=== PATIENT | male | born 1955 | race Caucasian/White ===

== ENCOUNTER 2020-04-17 14:11 | Inpatient (IN) ==
[2020-04-17 15:02] LABS: Basophils % 0.6 %; Eosinophils # 0.1 K/mcL (0.0-0.6); Hematocrit 36.6 % (37.5-50.1); Hemoglobin 11.4 g/dL (12.9-16.9); Immature Granulocytes % 0.2 % (0-4); Lymphocytes # 2.1 K/mcL (0.6-4.6); Lymphocytes % 38.5 %; Mean Corpuscular HGB Conc 31.1 g/dL (31.6-35.5); Mean Corpuscular Hemoglobin 31.2 pg (28.0-33.3); Mean Corpuscular Volume 100.3 fL (83.0-100.0); Mean Platelet Volume 10.2 fL (9.4-12.4); Monocytes # 0.4 K/mcL (0.0-1.3); Monocytes % 6.7 %; Neutrophils # 2.8 K/mcL (1.6-8.9); Platelet Count 102 K/mcL (140-400); Red Blood Count 3.65 M/mcL (4.19-5.50); Red Cell Distribution Width 13.7 % (11.5-14.5); White Blood Count 5.4 K/mcL (4.3-11.1)
[2020-04-17 15:28] LABS: Troponin I < 0.03 ng/mL (< 0.04)
[2020-04-17 15:47] LABS: BUN/Creatinine Ratio 11 (6-26); Blood Urea Nitrogen 42 mg/dL (8-23); Calcium 8.7 mg/dL (8.6-10.3); Carbon Dioxide 29 mEq/L (23-29); Chloride 106 mEq/L (98-107); Glucose 108 mg/dL (70-105); Osmolality,Calculated 299 (280-300); Potassium 5.6 mEq/L (3.5-5.1); Sodium 139 mEq/L (136-145); eGFR For African Americans 20 (> 60); eGFR For Non-African Americans 17 (> 60)
[2020-04-17] MEDS ORDERED: *HR* FentaNYL (PF) 100 MCG/2 ML VIAL IVP ONE (16:38)
[2020-04-17] MEDS ORDERED: Ondansetron 4 MG/2 ML VIAL IVP ONE (16:39)
[2020-04-17] MEDS ORDERED: Naloxone 0.4 MG/ML INJ IVP PRN ×2 (17:41→18:46)
[2020-04-17] MEDS ORDERED: *HR* Dextrose 50 % in Water (Vial) 50 ML VIAL IVP PRN (18:13)
[2020-04-17] MEDS ORDERED: Dextrose Gel 15 GM/37.5 ML TUBE PO PRN ×2 (18:13)
[2020-04-17] MEDS ORDERED: D5% in Water 1,000 ML IVC PRN (18:13)
[2020-04-17] MEDS ORDERED: Perflutren Lipid Microsphere 1.3 ML in 0.9 % Sodium Chloride 8.7 ML IVP PRN (18:18)
[2020-04-17] MEDS ORDERED: *HR* OxyCODONE Immed Rel 5 MG TABLET PO PRN (18:46)
[2020-04-17] MEDS ORDERED: Ondansetron 4 MG/2 ML VIAL IVP PRN (18:46)
[2020-04-17] MEDS ORDERED: *HR* OxyCODONE Immed Rel 15 MG TABLET PO PRN (18:52)
[2020-04-17] MEDS ORDERED: Calcium Gluconate 1gm/50mL 1 GM/50 ML BAG IVPB ONE (19:00)
[2020-04-17] MEDS ORDERED: Insulin Human Regular 5 UNIT in 0.9 % Sodium Chloride 10 ML IV ONE (19:00)
[2020-04-17] MEDS ORDERED: *HR* Dextrose 50 % in Water (Vial) 50 ML VIAL IVP ONE (19:02)
[2020-04-17] MEDS: Insulin LISPRO 300 UNITS/3 ML VIAL SQ SCH (20:26)
[2020-04-17] MEDS: Pregabalin 75 MG CAPSULE PO SCH (22:42)
[2020-04-17 23:43] LABS: Calcium 8.6 mg/dL (8.6-10.3); Potassium 5.2 mEq/L (3.5-5.1)
[2020-04-18 05:14] LABS: ABG Base Excess 2 mEq/L (-2 to 3); ABG HCO3 33 mEq/L (21-27); ABG Oxygen Saturation 92 % (95-98); ABG PCO2 92 mmHg (35-45); ABG PH 7.16 pH Units (7.32-7.45); ABG PO2 85 mmHg (85-104); ABG TCO2 36 mEq/L (20-26); Blood Gas Modality AVAPS; Blood Gas VT 500 cc
[2020-04-18 05:35] LABS: Basophils # 0.1 K/mcL (0.0-0.2); Basophils % 0.7 %; Eosinophils # 0.1 K/mcL (0.0-0.6); Eosinophils % 1.8 %; Hematocrit 39.4 % (37.5-50.1); Hemoglobin 11.6 g/dL (12.9-16.9); Immature Granulocytes % 0.4 % (0-4); Lymphocytes # 3.3 K/mcL (0.6-4.6); Lymphocytes % 44.5 %; Mean Corpuscular HGB Conc 29.4 g/dL (31.6-35.5); Mean Corpuscular Hemoglobin 30.2 pg (28.0-33.3); Mean Corpuscular Volume 102.6 fL (83.0-100.0); Mean Platelet Volume 10.8 fL (9.4-12.4); Monocytes # 0.7 K/mcL (0.0-1.3); Neutrophils # 3.2 K/mcL (1.6-8.9); Platelet Count 130 K/mcL (140-400); Red Blood Count 3.84 M/mcL (4.19-5.50); Segmented Neutrophils % 43.6 %; White Blood Count 7.4 K/mcL (4.3-11.1)
[2020-04-18 06:06] LABS: ABG Base Excess -1 mEq/L (-2 to 3); ABG HCO3 28 mEq/L (21-27); ABG Oxygen Saturation 97 % (95-98); ABG PCO2 68 mmHg (35-45); ABG PH 7.23 pH Units (7.32-7.45); ABG PO2 109 mmHg (85-104); ABG TCO2 30 mEq/L (20-26); Blood Gas Modality avaps; Blood Gas VT 500 cc
[2020-04-18 06:06] LABS: Albumin 3.4 g/dL (3.5-5.7); Albumin/Globulin Ratio 0.8 (1.1-2.2); Bilirubin,Total 0.4 mg/dL (0.3-1.0); Calcium 8.8 mg/dL (8.6-10.3); Globulin 4.5 g/dL (2.4-3.5); Magnesium 2.4 mg/dL (1.6-2.6); Phosphorous 5.8 mg/dL (2.7-4.5); Potassium 6.2 mEq/L (3.5-5.1); Total Protein 7.9 g/dL (6.4-8.9)
[2020-04-18] MEDS ORDERED: Calcium Gluconate 1gm/50mL 1 GM/50 ML BAG IVPB ONE ×2 (07:00→09:32)
[2020-04-18] MEDS ORDERED: Insulin Human Regular 10 UNIT in 0.9 % Sodium Chloride 10 ML IV ONE (07:01)
[2020-04-18] MEDS ORDERED: LISINOPRIL 10 MG PO SCH (09:00)
[2020-04-18 09:17] LABS: Estimated Average Glucose 143 mg/dl
[2020-04-18 09:38] LABS: ABG Base Excess 3 mEq/L (-2 to 3); ABG HCO3 32 mEq/L (21-27); ABG Oxygen Saturation 97 % (95-98); ABG PCO2 74 mmHg (35-45); ABG PH 7.25 pH Units (7.32-7.45); ABG PO2 107 mmHg (85-104); ABG TCO2 34 mEq/L (20-26)
[2020-04-18] MEDS: Insulin LISPRO 300 UNITS/3 ML VIAL SQ SCH ×3 (09:39→17:57)
[2020-04-18] MEDS ORDERED: Albuterol 2.5 MG/3 ML NEBULIZER IH ONE (09:48)
[2020-04-18] MEDS ORDERED: Albuterol 2.5 MG/3 ML NEBULIZER ONE (09:51)
[2020-04-18] MEDS: Aspirin 81 MG TAB.CHEW PO SCH (12:49)
[2020-04-18] MEDS: Pregabalin 75 MG CAPSULE PO SCH (12:50)
[2020-04-18] MEDS ORDERED: 0.9 % Sodium Chloride 250 ML IVC PRN (13:22)
[2020-04-18] MEDS ORDERED: 0.9 % Sodium Chloride 1,000 ML PRIME SCH ×2 (13:30→19:30)
[2020-04-18] MEDS ORDERED: 0.9 % Sodium Chloride 500 ML ONE (14:03)
[2020-04-18] MEDS ORDERED: *HR* Heparin 5,000 UNIT/ML VIAL ONE (14:08)
[2020-04-18] MEDS ORDERED: *HR* Heparin 10,000 UNIT/10 ML VIAL IV PRN (16:02)
[2020-04-18 16:03] LABS: Hepatitis B Surface Antibody < 3.10 mIU/mL
[2020-04-18 16:49] LABS: VBG HCO3 33 mEq/L (21-27); VBG PCO2 109 mmHg (41-51); VBG PH 7.08 pH Units (7.32-7.42); VBG PO2 106 mmHg (25-50)
[2020-04-18 18:19] LABS: ABG Base Excess 1 mEq/L (-2 to 3); ABG HCO3 34 mEq/L (21-27); ABG Oxygen Saturation 81 % (95-98); ABG PCO2 110 mmHg (35-45); ABG PO2 65 mmHg (85-104); ABG TCO2 37 mEq/L (20-26)
[2020-04-18] MEDS ORDERED: Calcium Gluconate 1gm/50mL 1 GM/50 ML BAG IVPB PRN ×2 (19:16)
[2020-04-18] MEDS ORDERED: *HR* Heparin 5,000 UNIT/ML VIAL CRRT PRN (19:16)
[2020-04-18 19:24] LABS: Adenovirus Not Detected (Not Detect); Bordetella Pertussis Not Detected (Not Detect); Chlamydophila pneumoniae Not Detected (Not Detect); Coronavirus 229E Not Detected (Not Detect); Coronavirus HKU1 Not Detected (Not Detect); Coronavirus NL63 Not Detected (Not Detect); Coronavirus OC43 Not Detected (Not Detect); Human Metapneumovirus Not Detected (Not Detect); Human Rhinovirus/Enterovirus Not Detected (Not Detect); Influenza A Subtype 2009 H1 Not Detected (Not Detect); Influenza B Not Detected (Not Detect); Mycoplasma pneumoniae Not Detected (Not Detect); Parainfluenza Virus 1 Not Detected (Not Detect); Parainfluenza Virus 2 Not Detected (Not Detect); Parainfluenza Virus 3 Not Detected (Not Detect); Parainfluenza Virus 4 Not Detected (Not Detect); Respiratory Syncytial Virus Not Detected (Not Detect)
[2020-04-18 19:30] LABS: Hepatitis B Surface Antigen Reactive (Nonreactive)
[2020-04-18] MEDS ORDERED: Calcium Chloride 4,000 MG in 0.9 % Sodium Chloride 1,000 ML CRRT SCH (19:30)
[2020-04-18] MEDS ORDERED: PrismaSATE BGK 4/2.5 5,000 ML CRRT SCH ×2 (19:30)
[2020-04-18 19:49] LABS: ABG Base Excess 1 mEq/L (-2 to 3); ABG HCO3 31 mEq/L (21-27); ABG Oxygen Saturation 95 % (95-98); ABG PCO2 82 mmHg (35-45); ABG PH 7.19 pH Units (7.32-7.45); ABG PO2 95 mmHg (85-104); ABG TCO2 34 mEq/L (20-26); Blood Gas VT 600 cc
[2020-04-18] MEDS ORDERED: Furosemide 40 MG/4 ML VIAL IVP ONE (20:51)
[2020-04-18 21:43] LABS: Amorphous Sediment,Urine Few per hpf (None-Few); Bacteria,Urine Few per hpf (None-Few); Bilirubin,Urine Negative (Negative); Blood,Urine Small (Negative); Clarity,Urine Turbid (Clear); Color,Urine Yellow (Yellow); Glucose,Urine (UA) 50 mg/dL (Normal); Ketones,Urine Negative (Negative); Leukocyte Esterase,Urine Negative (Negative); Mucus,Urine Few per lpf (None-Few); Nitrite,Urine Negative (Negative); PH,Urine 5.5 pH Units (5.0-8.0); Protein,Urine >=300 mg/dL (Neg-Trace); RBC,Urine 0-3 per hpf (0-3); Specific Gravity,Urine 1.018 (1.010-1.025); Squamous Epithelial Cell,Urine Few per hpf (None-Few); Urobilinogen,Urine Normal (Normal); WBC,Urine 0-3 per hpf (0-3)
[2020-04-18 22:07] LABS: Protein/Creatinine Ratio,Urine 3.7 mg/mg (0.00-0.20)
[2020-04-19 03:56] LABS: Basophils % 0.5 %
[2020-04-19 03:58] LABS: Eosinophils # 0.1 K/mcL (0.0-0.6); Eosinophils % 0.8 %; Hematocrit 33.2 % (37.5-50.1); Hemoglobin 9.7 g/dL (12.9-16.9); Immature Granulocytes % 0.5 % (0-4); Immature Platelets 3.4 % (1.1-6.1); Lymphocytes # 1.8 K/mcL (0.6-4.6); Mean Corpuscular HGB Conc 29.2 g/dL (31.6-35.5); Mean Corpuscular Hemoglobin 30.1 pg (28.0-33.3); Mean Corpuscular Volume 103.1 fL (83.0-100.0); Mean Platelet Volume 10.3 fL (9.4-12.4); Monocytes # 0.4 K/mcL (0.0-1.3); Monocytes % 6.7 %; Neutrophils # 3.6 K/mcL (1.6-8.9); Platelet Count 103 K/mcL (140-400); Red Blood Count 3.22 M/mcL (4.19-5.50); Red Cell Distribution Width 13.8 % (11.5-14.5); Segmented Neutrophils % 60.5 %; White Blood Count 5.9 K/mcL (4.3-11.1)
[2020-04-19 04:16] LABS: Calcium 8.2 mg/dL (8.6-10.3); Magnesium 2.1 mg/dL (1.6-2.6); Phosphorous 5.4 mg/dL (2.7-4.5); Potassium 5.5 mEq/L (3.5-5.1)
[2020-04-19 04:18] LABS: ABG Base Excess 3 mEq/L (-2 to 3); ABG HCO3 31 mEq/L (21-27); ABG Oxygen Saturation 91 % (95-98); ABG PCO2 70 mmHg (35-45); ABG PH 7.26 pH Units (7.32-7.45); ABG PO2 74 mmHg (85-104); ABG TCO2 34 mEq/L (20-26); Blood Gas VT 600 cc
[2020-04-19] MEDS ORDERED: Albumin 25% 25gram/100mL 25 GM/100 ML IV.SOLN IVPB PRN (07:30)
[2020-04-19] MEDS ORDERED: 0.9 % Sodium Chloride 250 ML IVC PRN (07:30)
[2020-04-19] MEDS ORDERED: *HR* Heparin 10,000 UNIT/10 ML VIAL IV PRN (08:13)
[2020-04-19] MEDS ORDERED: Norepinephrine 4 MG/254 ML IV.SOLN IVC SCH (08:15)
[2020-04-19] MEDS: Aspirin 81 MG TAB.CHEW PO SCH (08:34)
[2020-04-19] MEDS: Insulin LISPRO 300 UNITS/3 ML VIAL SQ SCH ×3 (08:35→18:21)
[2020-04-19 15:11] LABS: ABG Base Excess 4 mEq/L (-2 to 3); ABG HCO3 34 mEq/L (21-27); ABG Oxygen Saturation 92 % (95-98); ABG PCO2 81 mmHg (35-45); ABG PH 7.23 pH Units (7.32-7.45); ABG PO2 79 mmHg (85-104); ABG TCO2 36 mEq/L (20-26); Blood Gas Modality avaps; Blood Gas VT 600 cc
[2020-04-19] MEDS ORDERED: *HR* OxyCODONE Immed Rel 5 MG TABLET PO PRN (17:26)
[2020-04-20 04:52] LABS: ABG Base Excess 4 mEq/L (-2 to 3); ABG HCO3 32 mEq/L (21-27); ABG Oxygen Saturation 99 % (95-98); ABG PCO2 60 mmHg (35-45); ABG PH 7.33 pH Units (7.32-7.45); ABG PO2 130 mmHg (85-104); ABG TCO2 34 mEq/L (20-26); Blood Gas VT 600 cc
[2020-04-20 05:09] LABS: Basophils % 0.4 %; Eosinophils # 0.1 K/mcL (0.0-0.6); Hematocrit 33.9 % (37.5-50.1); Hemoglobin 10.5 g/dL (12.9-16.9); Immature Granulocytes % 0.1 % (0-4); Lymphocytes % 29.3 %; Mean Corpuscular Hemoglobin 30.3 pg (28.0-33.3); Monocytes # 0.5 K/mcL (0.0-1.3); Monocytes % 6.6 %; Neutrophils # 4.3 K/mcL (1.6-8.9); Platelet Count 103 K/mcL (140-400); Red Blood Count 3.46 M/mcL (4.19-5.50); Red Cell Distribution Width 13.6 % (11.5-14.5); Segmented Neutrophils % 61.6 %
[2020-04-20 05:10] LABS: VBG Ionized Calcium 1.09 mmol/L (1.15-1.35)
[2020-04-20 05:28] LABS: Calcium 8.5 mg/dL (8.6-10.3); Phosphorous 3.6 mg/dL (2.7-4.5); Potassium 4.7 mEq/L (3.5-5.1)
[2020-04-20] MEDS: Insulin LISPRO 300 UNITS/3 ML VIAL SQ SCH ×3 (09:52→17:13)
[2020-04-20] MEDS: Aspirin 81 MG TAB.CHEW PO SCH (09:56)
[2020-04-20 16:30] LABS: Total Volume 24 Hour,Urine 0.11 Liters (0.80-1.80)
[2020-04-20] MEDS ORDERED: Naloxone 0.4 MG/ML INJ IVP PRN (17:18)
[2020-04-20] MEDS ORDERED: Ondansetron 4 MG/2 ML VIAL IVP PRN (17:18)
[2020-04-20] MEDS ORDERED: Dextrose Gel 15 GM/37.5 ML TUBE PO PRN ×2 (17:18)
[2020-04-20] MEDS ORDERED: D5% in Water 1,000 ML IVC PRN (17:18)
[2020-04-20] MEDS ORDERED: *HR* Dextrose 50 % in Water (Vial) 50 ML VIAL IVP PRN (17:18)
[2020-04-21] MEDS: *HR* Heparin 5,000 UNIT/ML VIAL SQ SCH ×4 (00:28→20:54)
[2020-04-21 03:54] LABS: Basophils % 0.5 %; Eosinophils # 0.2 K/mcL (0.0-0.6); Eosinophils % 3.4 %; Hemoglobin 10.3 g/dL (12.9-16.9); Immature Granulocytes % 0.2 % (0-4); Lymphocytes # 2.4 K/mcL (0.6-4.6); Lymphocytes % 37.3 %; Mean Corpuscular HGB Conc 31.2 g/dL (31.6-35.5); Mean Corpuscular Hemoglobin 30.2 pg (28.0-33.3); Mean Corpuscular Volume 96.8 fL (83.0-100.0); Mean Platelet Volume 10.5 fL (9.4-12.4); Monocytes # 0.5 K/mcL (0.0-1.3); Monocytes % 7.3 %; Neutrophils # 3.3 K/mcL (1.6-8.9); Platelet Count 103 K/mcL (140-400); Red Blood Count 3.41 M/mcL (4.19-5.50); Red Cell Distribution Width 13.4 % (11.5-14.5); Segmented Neutrophils % 51.3 %; White Blood Count 6.5 K/mcL (4.3-11.1)
[2020-04-21 04:14] LABS: Albumin 2.9 g/dL (3.5-5.7); Calcium 8.1 mg/dL (8.6-10.3); Phosphorous 3.6 mg/dL (2.7-4.5); Potassium 4.7 mEq/L (3.5-5.1)
[2020-04-21] MEDS ORDERED: 0.9 % Sodium Chloride 250 ML IVC PRN (07:06)
[2020-04-21] MEDS ORDERED: 0.9 % Sodium Chloride 1,000 ML PRIME SCH (07:15)
[2020-04-21] MEDS: Aspirin 81 MG TAB.CHEW PO SCH (08:03)
[2020-04-21] MEDS: Insulin LISPRO 300 UNITS/3 ML VIAL SQ SCH ×3 (08:05→16:49)
[2020-04-21] MEDS ORDERED: *HR* Heparin 10,000 UNIT/10 ML VIAL IV PRN (13:39)
[2020-04-21] MEDS: amLODIPine 5 MG TABLET PO SCH (14:55)
[2020-04-21] MEDS ORDERED: *HR* LORazepam 2 MG/ML VIAL IVP ONE (15:52)
[2020-04-21] MEDS: hydrOXYzine pamoate 25 MG CAPSULE PO PRN (20:53)
[2020-04-21] MEDS: *HR* OxyCODONE Immed Rel 5 MG TABLET PO PRN (21:39)
[2020-04-22 01:32] LABS: Basophils % 0.5 %; Eosinophils # 0.2 K/mcL (0.0-0.6); Eosinophils % 3.1 %; Hematocrit 33.8 % (37.5-50.1); Hemoglobin 10.7 g/dL (12.9-16.9); Immature Granulocytes % 0.3 % (0-4); Lymphocytes # 2.6 K/mcL (0.6-4.6); Mean Corpuscular HGB Conc 31.7 g/dL (31.6-35.5); Mean Corpuscular Hemoglobin 30.4 pg (28.0-33.3); Mean Platelet Volume 10.1 fL (9.4-12.4); Monocytes # 0.4 K/mcL (0.0-1.3); Monocytes % 6.5 %; Neutrophils # 3.2 K/mcL (1.6-8.9); Platelet Count 117 K/mcL (140-400); Red Blood Count 3.52 M/mcL (4.19-5.50); Red Cell Distribution Width 13.4 % (11.5-14.5); Segmented Neutrophils % 49.6 %; White Blood Count 6.4 K/mcL (4.3-11.1)
[2020-04-22 01:52] LABS: Calcium 8.2 mg/dL (8.6-10.3); Potassium 4.2 mEq/L (3.5-5.1)
[2020-04-22 02:00] LABS: INR 1.1; Prothrombin Time 12.8 Seconds (9.4-12.1)
[2020-04-22] MEDS: *HR* OxyCODONE Immed Rel 5 MG TABLET PO PRN ×4 (05:22→21:38)
[2020-04-22] MEDS: hydrOXYzine pamoate 25 MG CAPSULE PO PRN ×3 (05:23→23:26)
[2020-04-22] MEDS: *HR* Heparin 5,000 UNIT/ML VIAL SQ SCH ×3 (05:23→21:38)
[2020-04-22] MEDS: amLODIPine 5 MG TABLET PO SCH (08:09)
[2020-04-22] MEDS: Insulin LISPRO 300 UNITS/3 ML VIAL SQ SCH ×3 (08:10→17:20)
[2020-04-22] MEDS: Aspirin 81 MG TAB.CHEW PO SCH (08:11)
[2020-04-22] MEDS ORDERED: Heparin 1,000 UNITS/500 mL 500 ML ONE (08:36)
[2020-04-22] MEDS ORDERED: *HR* LORazepam 2 MG/ML VIAL IVP ONE (08:47)
[2020-04-22] MEDS ORDERED: 0.9 % Sodium Chloride 500 ML ONE (09:11)
[2020-04-22] MEDS ORDERED: *HR* FentaNYL (PF) 100 MCG/2 ML VIAL ONE (10:11)
[2020-04-22] MEDS ORDERED: *HR* Midazolam HCl 2 MG/2 ML VIAL ONE (10:11)
[2020-04-22] MEDS ORDERED: *HR* Heparin 5,000 UNIT/ML VIAL ONE (10:14)
[2020-04-22] MEDS ORDERED: Clindamycin 600 MG/50 ML 600 MG/50 ML IV.SOLN IVPB ONE (10:14)
[2020-04-22] MEDS ORDERED: *HR* Midazolam HCl 2 MG/2 ML VIAL IVP ONE (10:14)
[2020-04-22] MEDS ORDERED: *HR* FentaNYL (PF) 100 MCG/2 ML VIAL IVP ONE (10:14)
[2020-04-23] MEDS: *HR* OxyCODONE Immed Rel 5 MG TABLET PO PRN (04:01)
[2020-04-23 05:25] LABS: Basophils % 0.7 %; Eosinophils # 0.1 K/mcL (0.0-0.6); Eosinophils % 2.5 %; Hematocrit 34.2 % (37.5-50.1); Hemoglobin 10.8 g/dL (12.9-16.9); Immature Granulocytes % 0.4 % (0-4); Lymphocytes # 2.3 K/mcL (0.6-4.6); Lymphocytes % 40.7 %; Mean Corpuscular HGB Conc 31.6 g/dL (31.6-35.5); Mean Corpuscular Hemoglobin 30.3 pg (28.0-33.3); Mean Corpuscular Volume 95.8 fL (83.0-100.0); Mean Platelet Volume 10.3 fL (9.4-12.4); Monocytes # 0.5 K/mcL (0.0-1.3); Monocytes % 8.9 %; Neutrophils # 2.6 K/mcL (1.6-8.9); Platelet Count 101 K/mcL (140-400); Red Blood Count 3.57 M/mcL (4.19-5.50); Red Cell Distribution Width 13.3 % (11.5-14.5); Segmented Neutrophils % 46.8 %; White Blood Count 5.6 K/mcL (4.3-11.1)
[2020-04-23 05:49] LABS: Calcium 8.3 mg/dL (8.6-10.3); Potassium 4.5 mEq/L (3.5-5.1)
[2020-04-23] MEDS: *HR* Heparin 5,000 UNIT/ML VIAL SQ SCH ×3 (06:00→21:24)
[2020-04-23] MEDS ORDERED: 0.9 % Sodium Chloride 250 ML IVC PRN (07:02)
[2020-04-23] MEDS: Aspirin 81 MG TAB.CHEW PO SCH (08:14)
[2020-04-23] MEDS: amLODIPine 5 MG TABLET PO SCH (08:16)
[2020-04-23] MEDS: Insulin LISPRO 300 UNITS/3 ML VIAL SQ SCH ×3 (08:16→17:11)
[2020-04-23] MEDS ORDERED: *HR* Heparin 10,000 UNIT/10 ML VIAL IV PRN (12:04)
[2020-04-23] MEDS: *HR* OxyCODONE Immed Rel 15 MG TABLET PO PRN ×2 (14:55→21:40)
[2020-04-23] MEDS: hydrOXYzine pamoate 25 MG CAPSULE PO PRN (23:10)
[2020-04-24] MEDS: *HR* Heparin 5,000 UNIT/ML VIAL SQ SCH ×3 (05:47→20:57)
[2020-04-24] MEDS: *HR* OxyCODONE Immed Rel 15 MG TABLET PO PRN ×3 (05:47→20:56)
[2020-04-24 06:24] LABS: Basophils % 0.6 %; Eosinophils # 0.1 K/mcL (0.0-0.6); Eosinophils % 2.8 %; Hematocrit 33.5 % (37.5-50.1); Hemoglobin 10.9 g/dL (12.9-16.9); Immature Granulocytes % 0.4 % (0-4); Lymphocytes # 2.1 K/mcL (0.6-4.6); Lymphocytes % 41.1 %; Mean Corpuscular HGB Conc 32.5 g/dL (31.6-35.5); Mean Corpuscular Hemoglobin 31.1 pg (28.0-33.3); Mean Corpuscular Volume 95.4 fL (83.0-100.0); Mean Platelet Volume 10.3 fL (9.4-12.4); Monocytes # 0.4 K/mcL (0.0-1.3); Monocytes % 8.1 %; Neutrophils # 2.4 K/mcL (1.6-8.9); Platelet Count 114 K/mcL (140-400); Red Blood Count 3.51 M/mcL (4.19-5.50); Red Cell Distribution Width 13.6 % (11.5-14.5); White Blood Count 5.1 K/mcL (4.3-11.1)
[2020-04-24 06:47] LABS: Albumin 3.2 g/dL (3.5-5.7); Albumin/Globulin Ratio 0.8 (1.1-2.2); Bilirubin,Total 0.5 mg/dL (0.3-1.0); Calcium 8.4 mg/dL (8.6-10.3); Potassium 3.8 mEq/L (3.5-5.1); Total Protein 7.2 g/dL (6.4-8.9)
[2020-04-24 07:44] LABS: Bilirubin,Direct 0.1 mg/dL (0.0-0.2); Bilirubin,Indirect 0.4 mg/dL (0.0-1.0)
[2020-04-24] MEDS: Aspirin 81 MG TAB.CHEW PO SCH (10:27)
[2020-04-24] MEDS: amLODIPine 5 MG TABLET PO SCH (10:27)
[2020-04-24] MEDS: Insulin LISPRO 300 UNITS/3 ML VIAL SQ SCH ×3 (10:40→19:02)
[2020-04-24 11:46] LABS: Hepatitis B Core Ab Total POSITIVE (Negative); Hepatitis Be Antibody NEGATIVE (Negative)
[2020-04-24] MEDS: hydrOXYzine pamoate 25 MG CAPSULE PO PRN (20:58)
[2020-04-25] MEDS: *HR* OxyCODONE Immed Rel 15 MG TABLET PO PRN ×3 (02:20→16:48)
[2020-04-25 02:35] LABS: Basophils % 0.6 %; Eosinophils # 0.1 K/mcL (0.0-0.6); Eosinophils % 2.6 %; Hematocrit 30.8 % (37.5-50.1); Hemoglobin 9.9 g/dL (12.9-16.9); Immature Granulocytes % 0.2 % (0-4); Lymphocytes # 2.3 K/mcL (0.6-4.6); Lymphocytes % 42.6 %; Mean Corpuscular HGB Conc 32.1 g/dL (31.6-35.5); Mean Corpuscular Hemoglobin 30.1 pg (28.0-33.3); Mean Corpuscular Volume 93.6 fL (83.0-100.0); Mean Platelet Volume 10.4 fL (9.4-12.4); Monocytes # 0.4 K/mcL (0.0-1.3); Monocytes % 7.7 %; Neutrophils # 2.5 K/mcL (1.6-8.9); Platelet Count 106 K/mcL (140-400); Red Blood Count 3.29 M/mcL (4.19-5.50); Red Cell Distribution Width 13.5 % (11.5-14.5); Segmented Neutrophils % 46.3 %; White Blood Count 5.4 K/mcL (4.3-11.1)
[2020-04-25 02:53] LABS: Potassium 4.1 mEq/L (3.5-5.1)
[2020-04-25] MEDS: *HR* Heparin 5,000 UNIT/ML VIAL SQ SCH (06:18)
[2020-04-25] MEDS ORDERED: 0.9 % Sodium Chloride 250 ML IVC PRN (07:09)
[2020-04-25] MEDS: Aspirin 81 MG TAB.CHEW PO SCH (07:34)
[2020-04-25] MEDS: amLODIPine 5 MG TABLET PO SCH (07:35)
[2020-04-25] MEDS ORDERED: 0.9 % Sodium Chloride 2,000 ML ONE (08:59)
[2020-04-25] MEDS ORDERED: Renal Vitamin 1 CAP CAPSULE PO SCH (09:00)
[2020-04-25 10:50] LABS: Hepatitis Be Antigen POSITIVE (Negative)
[2020-04-25] MEDS ORDERED: *HR* Heparin 10,000 UNIT/10 ML VIAL IV PRN ×2 (10:51→12:03)
[2020-04-25 16:09] VITALS: BP 147/69
[2020-04-25 18:51] LABS: HBV Quant Log by PCR 8.74 log IU/mL
[2020-04-26 09:42] LABS: HBV Quant Interpretation DETECTED (Not Detected)
== END 2020-04-25 19:30 | disposition other institution (70) | DRG 682 ==
LOC: EMEROOARM 14:11 → 3BNU 14:11 → 2ANU 04-18 11:26 → SUATTDRO 04-18 13:58 → ICNU 04-18 19:25 → 2NNU 04-20 16:12 → 3NENU 04-22 11:21
PROVIDERS: ADMIT Internal Medicine; ATTEND Student in an Organized Health Care Education/Training Program
PROC: IRPERMA (2020-04-22 12:00)

== ENCOUNTER 2020-11-26 23:16 | Inpatient (IN) ==
[2020-11-27 00:05] LABS: Basophils # 0.1 K/mcL (0.0-0.2); Basophils % 0.5 %; Eosinophils # 0.2 K/mcL (0.0-0.6); Eosinophils % 1.5 %; Hematocrit 28.2 % (37.5-50.1); Hemoglobin 9.4 g/dL (12.9-16.9); Immature Granulocytes % 0.6 % (0-4); Lymphocytes # 1.7 K/mcL (0.6-4.6); Lymphocytes % 15.9 %; Mean Corpuscular HGB Conc 33.3 g/dL (31.6-35.5); Mean Corpuscular Hemoglobin 31.5 pg (28.0-33.3); Mean Corpuscular Volume 94.6 fL (83.0-100.0); Mean Platelet Volume 9.8 fL (9.4-12.4); Monocytes # 0.8 K/mcL (0.0-1.3); Monocytes % 7.6 %; Neutrophils # 7.7 K/mcL (1.6-8.9); Platelet Count 163 K/mcL (140-400); Red Blood Count 2.98 M/mcL (4.19-5.50); Red Cell Distribution Width 14.2 % (11.5-14.5); Segmented Neutrophils % 73.9 %; White Blood Count 10.4 K/mcL (4.3-11.1)
[2020-11-27 00:24] LABS: Calcium 8.4 mg/dL (8.6-10.3); Potassium 2.8 mEq/L (3.5-5.1)
[2020-11-27 00:34] LABS: Troponin I 0.39 ng/mL (< 0.04)
[2020-11-27 00:50] LABS: INR 1.3; Prothrombin Time 15.1 Seconds (9.4-12.1)
[2020-11-27] MEDS ORDERED: Dextrose Gel 15 GM/37.5 ML TUBE PO PRN ×2 (01:55)
[2020-11-27] MEDS ORDERED: *HR* Dextrose 50 % in Water (Vial) 50 ML VIAL IVP PRN (01:55)
[2020-11-27] MEDS ORDERED: D5% in Water 1,000 ML IVC PRN (01:55)
[2020-11-27] MEDS ORDERED: Melatonin 3 MG TABLET PO PRN (01:56)
[2020-11-27] MEDS ORDERED: Acetaminophen 325 MG TABLET PO PRN (01:56)
[2020-11-27] MEDS ORDERED: Naloxone 0.4 MG/ML INJ IVP PRN (01:56)
[2020-11-27 02:33] LABS: Phosphorous 2.6 mg/dL (2.7-4.5)
[2020-11-27] MEDS: Morphine Sulfate 2 MG/ML SYRINGE IVP PRN ×3 (02:53→18:15)
[2020-11-27] MEDS ORDERED: Furosemide 40 MG/4 ML VIAL IVP ONE (04:06)
[2020-11-27] MEDS ORDERED: *HR* Heparin 5,000 UNIT/ML VIAL SQ SCH (06:00)
[2020-11-27] MEDS ORDERED: *HR* Heparin 5,000 UNIT/ML VIAL IVP PRN ×2 (06:42)
[2020-11-27] MEDS ORDERED: *HR* Heparin 5,000 UNIT/ML VIAL IVP ONE (06:42)
[2020-11-27] MEDS: Aspirin 81 MG TAB.CHEW PO SCH (07:28)
[2020-11-27] MEDS: Renal Vitamin 1 CAP CAPSULE PO SCH (07:28)
[2020-11-27] MEDS: Heparin 25,000UNIT/250ML 1/2NS 25,000 UNIT/250 ML IV.SOLN IVC SCH (07:29)
[2020-11-27] MEDS: Insulin LISPRO 300 UNITS/3 ML VIAL SUBQ SCH ×4 (07:34→21:09)
[2020-11-27] MEDS: Insulin DETEMIR 100 UNIT/ML X5UNITS SUBQ SCH ×2 (07:37→21:09)
[2020-11-27 08:23] LABS: Heparin anti-factor XA UFH < 0.04 IU/mL (0.30-0.70); INR 1.3; Prothrombin Time 14.7 Seconds (9.4-12.1)
[2020-11-27 08:26] LABS: Hemoglobin 9.4 g/dL (12.9-16.9); Mean Corpuscular HGB Conc 32.4 g/dL (31.6-35.5); Mean Corpuscular Hemoglobin 31.3 pg (28.0-33.3); Mean Corpuscular Volume 96.7 fL (83.0-100.0); Mean Platelet Volume 9.7 fL (9.4-12.4); Platelet Count 167 K/mcL (140-400); Red Cell Distribution Width 14.1 % (11.5-14.5); White Blood Count 11.5 K/mcL (4.3-11.1)
[2020-11-27 08:31] LABS: Calcium 8.7 mg/dL (8.6-10.3); Potassium 2.9 mEq/L (3.5-5.1)
[2020-11-27] MEDS: *HR* OxyCODONE Immed Rel 15 MG TABLET PO PRN ×2 (09:02→21:08)
[2020-11-27] MEDS ORDERED: Perflutren Lipid Microsphere 1.3 ML in 0.9 % Sodium Chloride 8.7 ML IVP PRN (10:50)
[2020-11-27] MEDS ORDERED: 0.9 % Sodium Chloride 250 ML IVC PRN (11:23)
[2020-11-27] MEDS ORDERED: 0.9 % Sodium Chloride 1,000 ML PRIME SCH (11:30)
[2020-11-27] MEDS: lisinopriL 10 MG TABLET PO SCH (12:28)
[2020-11-27] MEDS ORDERED: *HR* Heparin 10,000 UNIT/10 ML VIAL ONE (16:44)
[2020-11-27 20:01] LABS: Acinetobacter baumannii by PCR Not Detected (Not Detect); Candida albicans by PCR Not Detected (Not Detect); Candida glabrata by PCR Not Detected (Not Detect); Candida krusei by PCR Not Detected (Not Detect); Candida parapsilosis by PCR Not Detected (Not Detect); Candida tropicalis by PCR Not Detected (Not Detect); Enterobacter cloacae Cmplx PCR Not Detected (Not Detect); Enterobacteriaceae by PCR Not Detected (Not Detect); Enterococcus by PCR DETECTED (Not Detect); Escherichia coli by PCR Not Detected (Not Detect); Klebsiella oxytoca by PCR Not Detected (Not Detect); Klebsiella pneumoniae by PCR Not Detected (Not Detect); Proteus by PCR Not Detected (Not Detect); Pseudomonas aeruginosa by PCR Not Detected (Not Detect); Serratia marcescens by PCR Not Detected (Not Detect); Staphylococcus aureus by PCR Not Detected (Not Detect); Staphylococcus by PCR Not Detected (Not Detect); Streptococcus agalactiae(B)PCR Not Detected (Not Detect); Streptococcus by PCR Not Detected (Not Detect); Streptococcus pneumoniae PCR Not Detected (Not Detect); Streptococcus pyogenes (A) PCR Not Detected (Not Detect); mecA Methicillin-Resist Gene Not Detected (Not Detect); vanA/B Vancomycin-Resist Genes Not Detected (Not Detect)
[2020-11-27] MEDS ORDERED: Ondansetron ODT 4 MG TAB.RAPDIS PO ONE (22:00)
[2020-11-28] MEDS: Morphine Sulfate 2 MG/ML SYRINGE IVP PRN ×2 (01:48→19:50)
[2020-11-28] MEDS: Heparin 25,000UNIT/250ML 1/2NS 25,000 UNIT/250 ML IV.SOLN IVC SCH (01:51)
[2020-11-28 03:52] LABS: Basophils # 0.1 K/mcL (0.0-0.2); Basophils % 0.4 %; Eosinophils # 0.3 K/mcL (0.0-0.6); Eosinophils % 2.3 %; Hemoglobin 9.4 g/dL (12.9-16.9); Lymphocytes # 2.2 K/mcL (0.6-4.6); Lymphocytes % 19.5 %; Mean Corpuscular HGB Conc 32.4 g/dL (31.6-35.5); Mean Corpuscular Hemoglobin 31.9 pg (28.0-33.3); Mean Corpuscular Volume 98.3 fL (83.0-100.0); Mean Platelet Volume 9.7 fL (9.4-12.4); Monocytes # 0.9 K/mcL (0.0-1.3); Monocytes % 8.2 %; Neutrophils # 7.8 K/mcL (1.6-8.9); Platelet Count 187 K/mcL (140-400); Red Blood Count 2.95 M/mcL (4.19-5.50); Red Cell Distribution Width 14.4 % (11.5-14.5); Segmented Neutrophils % 68.6 %; White Blood Count 11.4 K/mcL (4.3-11.1)
[2020-11-28 04:12] LABS: Calcium 8.4 mg/dL (8.6-10.3); Potassium 3.3 mEq/L (3.5-5.1)
[2020-11-28] MEDS ORDERED: 0.9 % Sodium Chloride 250 ML IVC PRN (07:09)
[2020-11-28] MEDS ORDERED: Vancomycin 2,000 MG/520 ML IV.SOLN IVPB ONE ×2 (07:19→13:00)
[2020-11-28] MEDS: Insulin LISPRO 300 UNITS/3 ML VIAL SUBQ SCH ×4 (09:47→21:59)
[2020-11-28] MEDS: *HR* OxyCODONE Immed Rel 15 MG TABLET PO PRN (09:48)
[2020-11-28] MEDS ORDERED: *HR* Heparin 10,000 UNIT/10 ML VIAL ONE (11:31)
[2020-11-28] MEDS: Cholecalciferol (D-3) 1,000 UNIT (25MCG) TABLET PO SCH (12:17)
[2020-11-28] MEDS: Aspirin 81 MG TAB.CHEW PO SCH (12:17)
[2020-11-28] MEDS: lisinopriL 10 MG TABLET PO SCH (12:17)
[2020-11-28] MEDS: Multivit/Ca/Min/Fe/FA 1 TAB TABLET PO SCH (12:17)
[2020-11-28] MEDS: Renal Vitamin 1 CAP CAPSULE PO SCH (12:17)
[2020-11-28] MEDS: Insulin DETEMIR 100 UNIT/ML X5UNITS SUBQ SCH ×2 (12:19→19:50)
[2020-11-28] MEDS: Ascorbic Acid 500 MG TABLET PO SCH (12:20)
[2020-11-28] MEDS ORDERED: VANCOMYCIN INTRACATH SCH (18:00)
[2020-11-28] MEDS ORDERED: VANCOMYCIN IVP SCH ×2 (18:00)
[2020-11-28] MEDS ORDERED: HEPARIN IVP SCH ×2 (18:00)
[2020-11-28] MEDS ORDERED: LOK INTRACATH SCH (18:00)
[2020-11-28] MEDS ORDERED: HEPARIN INTRACATH SCH (18:00)
[2020-11-28] MEDS ORDERED: LOK IVP SCH ×2 (18:00)
[2020-11-29 01:51] LABS: Hematocrit 29.5 % (37.5-50.1); Hemoglobin 9.2 g/dL (12.9-16.9); Mean Corpuscular HGB Conc 31.2 g/dL (31.6-35.5); Mean Corpuscular Hemoglobin 31.1 pg (28.0-33.3); Mean Corpuscular Volume 99.7 fL (83.0-100.0); Mean Platelet Volume 9.7 fL (9.4-12.4); Platelet Count 230 K/mcL (140-400); Red Blood Count 2.96 M/mcL (4.19-5.50); Red Cell Distribution Width 14.3 % (11.5-14.5); Segmented Neutrophils % 66.8 %; White Blood Count 12.2 K/mcL (4.3-11.1)
[2020-11-29 01:52] LABS: Basophils # 0.1 K/mcL (0.0-0.2); Basophils % 0.6 %; Eosinophils # 0.3 K/mcL (0.0-0.6); Eosinophils % 2.8 %; Immature Granulocytes % 1.2 % (0-4); Lymphocytes # 2.5 K/mcL (0.6-4.6); Lymphocytes % 20.8 %; Monocytes % 7.8 %; Neutrophils # 8.1 K/mcL (1.6-8.9)
[2020-11-29 02:10] LABS: Calcium 8.6 mg/dL (8.6-10.3); Potassium 3.2 mEq/L (3.5-5.1)
[2020-11-29] MEDS: Morphine Sulfate 2 MG/ML SYRINGE IVP PRN (04:19)
[2020-11-29] MEDS: Aspirin 81 MG TAB.CHEW PO SCH (07:58)
[2020-11-29] MEDS: Multivit/Ca/Min/Fe/FA 1 TAB TABLET PO SCH (07:58)
[2020-11-29] MEDS: Cholecalciferol (D-3) 1,000 UNIT (25MCG) TABLET PO SCH (07:58)
[2020-11-29] MEDS: Ascorbic Acid 500 MG TABLET PO SCH (07:58)
[2020-11-29] MEDS: Insulin DETEMIR 100 UNIT/ML X5UNITS SUBQ SCH (07:59)
[2020-11-29] MEDS: Insulin LISPRO 300 UNITS/3 ML VIAL SUBQ SCH (07:59)
[2020-11-29] MEDS: Renal Vitamin 1 CAP CAPSULE PO SCH (07:59)
[2020-11-29] MEDS: lisinopriL 10 MG TABLET PO SCH (08:05)
[2020-11-29 10:20] VITALS: BP 107/50
== END 2020-11-29 14:20 | disposition home or self-care (01) | DRG 291 ==
LOC: 2ANU 23:16 → EMEROOARM 23:16 → SUATTDRO 11-27 01:59 → 2ANU 11-27 03:02
PROVIDERS: ADMIT Internal Medicine; ATTEND Internal Medicine